=== PATIENT | male | born 1960 | race Caucasian/White ===

== ENCOUNTER 2019-09-16 20:20 | Emergency (ER) | payer MEDICAID, OTHER ==
[~2019-09-16] VITALS: Ht 175.3 cm; Wt 72.0 kg
[2019-09-16] MEDS ORDERED: THIAMINE 200 MG/2 ML VIAL. IV ONE (20:32)
--- NOTE | 2019-09-16 20:47 | PHYS DOC ---
Past History Past Medical History: Alcoholism, CVA, Hypertension Past Medical History Limited secondary to acute intoxication Past Surgical History: No Surgical History Past Surgical History Limited secondary to acute intoxication Smoking: Cigarettes Alcohol Use: Heavy Drug Use: None Social History Limited secondary to acute intoxication Adult General Chief Complaint Chief Complaint: ALCOHOL INTOXICATION HPI HPI 59-year-old male presents with report of altered mental status with history of chronic alcohol abuse. Patient thinks he had a "mini stroke" this morning secondary to dizziness. Patient reports he has been trying to "wean" himself off of alcohol. Patient does report drinking today. EMS reports patient noted to have blood sugar in the 60s. A one-time dose of oral glucose therefore provided. Patient does have history of diabetes. Patient denies known trauma. Denies pain. History of present illness limited secondary to patient's intoxication as well as being uncooperative with questioning and examination. Review of Systems Review of Systems Constitutional: Denies fever or chills GI: Reports abdominal pain Neurologic: Reports dizziness Review of systems limited secondary to being uncooperative with questioning and examination as well as acute intoxication Current Medications Current Medications Current Medications Medications (Trade) Dose Ordered Sig/Elder Start Time Stop Time Status Last Admin Dose Admin Lorazepam (Ativan Inj) 1 mg 1X ONCE 09/16/19 20:30 09/16/19 20:31 UNV Multivitamins/ Minerals 10 ml/ Folic Acid 1 mg/ Thiamine HCl 100 mg/Lactated Ringer's 1,011.3 ml @ 1,011.3 mls/hr 1X ONCE 09/16/19 20:30 09/16/19 21:29 UNV Thiamine HCl (Thiamine Vial) 200 mg STK-MED ONCE 09/16/19 20:32 09/16/19 20:32 DC Allergies Allergies Allergies Coded Allergies Type Severity Reaction Last Updated Verified No Known Drug Allergies 09/16/19 No Physical Exam Physical Exam Constitutional: Well developed, well nourished, intoxicated HENT: Normocephalic, atraumatic, oropharynx moist Eyes: PERRL, EOMI, conjunctiva injected bilaterally, no discharge, horizontal nystagmus noted Neck: Normal range of motion, no midline tenderness, supple Cardiovascular: Heart rate tachycardic regular rhythm Lungs & Thorax: Bilateral breath sounds clear to auscultation, no wheezing Abdomen: Soft, no tenderness, no guarding/rebound tenderness, mild distention noted Skin: Warm, dry, no erythema, no rash Extremities: No tenderness, ROM intact, no edema Neurologic: Alert, intoxicated, no focal deficits noted, patient moving all extremities, poor effort Psychologic: Judgment abnormal, mood agitated EKG EKG @ 2039 Sinus tachycardia at 105bpm, NO ST elevation, QRS 114ms, QT/QTc 352/469ms, LAFB, non specific t wave inversion aVL Radiology/Procedures Radiology/Procedures PROCEDURE: CT HEAD AND CERVICAL SPINE WO Exam: CT head and cervical spine without contrast INDICATION: Altered mental status TECHNIQUE: Sequential axial images through the head and cervical spine were obtained without the administration of IV contrast. Comparisons: None FINDINGS: Head: No focal parenchymal lesion or hemorrhage is identified. There is no midline shift or sulcal effacement. No acute vascular territory infarction is identified. Ribeiro-white distinction is preserved. The ventricular system is within normal limits without compression hydrocephalus. The basal cisterns are well maintained. The visualized portions of the paranasal sinuses and mastoid air cells are well-pneumatized. No acute fractures. Cervical spine: Vertebral body heights are well-maintained. Straightening of cervical spine which may be positional. Fracture to the cervical spine is not identified. Mild multilevel spondylotic change in cervical spine with degenerative disc disease greatest at C4-C5 and C5-C6. Visualized paraspinal soft tissues are unremarkable. IMPRESSION: 1. No acute intracranial abnormality. 2. Negative CT C-spine for acute traumatic injury. Exposure: One or more of the following in the visualized dose reduction techniques were utilized for this examination: 1. Automated exposure control 2. Adjustment of the MA and/or KV according to patient size Use of iterative of reconstructive technique Electronically signed by: Tierra Bowles MD (09/16/2019 9:31 PM) [id number] PROCEDURE: CHEST AP ONLY EXAM: CHEST AP ONLY INDICATION: Altered mental status. TECHNIQUE: Single view COMPARISON: None FINDINGS: The heart size is normal. The great vessels appear unremarkable. There is no hilar or mediastinal mass. The lungs are clear. There is no pleural effusion or pneumothorax. There are no significant osseous abnormalities. IMPRESSION: No active cardiopulmonary disease. Electronically signed by: Nona Albright MD (09/16/2019 9:31 PM) [id number] Course & Med Decision Making Course & Med Decision Making Pertinent Labs and Imaging studies reviewed. (See chart for details) Patient presents with reported altered mental status which appears secondary to intoxication. Patient with chronic history of alcoholism. No focal deficit noted however patient uncooperative with examination and questioning. Banana bag initiated. Ativan given for agitation. EKG stable. Labs obtained and posted to chart. LFTs elevated which is consistent for ETOH abuse. Lactic acid elevated. SIRS criteria met. No source of infection noted. Likely secondary to dehydration from ETOH abuse. IVF hydration given at 30ml/kg including 1 liter from banana bag (2.5L total). Hypomagnesemia addressed. CT head/cervical spine without acute process. Chest x-ray stable. Patient monitored in emergency department until clinically sober. Repeat lactic acid with interval improvement. Patient stable for discharge with outpatient follow-up with PCP/drug and alcohol rehabilitation. Drug and alcohol resources provided. Discussed findings and plan with patient, who acknowledges understanding and agreement. Dragon Disclaimer Dragon Disclaimer This electronic medical record was generated, in whole or in part, using a voice recognition dictation system. Departure Departure: Impression: Primary Impression: Alcohol abuse Additional Impressions: Lactic acidosis Hypomagnesemia Elevated LFTs Disposition: HOME, SELF-CARE Condition: STABLE Referrals: VENKATESH JACKSON APRN (PCP) Patient Instructions: Alcohol Intoxication, [id number], Alcohol and Drug Addiction, Finding Treatment, How Much is Too Much Alcohol, [id number], Hypomagnesemia, Lactic Acid, Lactate Problem Qualifiers FABY CHOWDHURY DO Sep 16, 2019 20:47
[2019-09-16 20:50] LABS: BASO # 0.1 x10^3/uL (0.0-0.2); BASO % 1 % (0-3); EOS % 0 % (0-3); HEMATOCRIT 51.9 % (39.0-53.0); HEMOGLOBIN 17.7 g/dL (13.0-17.5); LYMPH # 2.1 x10^3/uL (1.0-4.8); LYMPH % 17 % (24-48); MEAN CORPUSCULAR HEMOGLOBIN 33 pg (25-35); MEAN CORPUSCULAR HGB CONC 34 g/dL (31-37); MEAN CORPUSCULAR VOLUME 98 fL (79-100); MONO # 0.8 x10^3/uL (0.0-1.1); MONO % 7 % (0-9); NEUT # 9.5 x10^3uL (1.8-7.7); NEUT % 76 % (31-73); PLATELET COUNT 145 x10^3/uL (140-400); RED CELL DISTRIBUTION WIDTH 14.8 % (11.5-14.5); WHITE BLOOD COUNT 12.5 x10^3/uL (4.0-11.0)
[2019-09-16 20:59] LABS: CALCIUM 8.3 mg/dL (8.5-10.1); CREATININE 1.3 mg/dL (0.7-1.3); GFR 56.7
[2019-09-16] MEDS ORDERED: IV NORMAL SALINE 1,000ML 1,000 ML IV ONE (21:00)
[2019-09-16] MEDS ORDERED: MVI, ADULT NO.4 WITH VIT K 10 ML, THIAMINE INJ 100 MG in IV RINGERS SOLUTION,LACTATED 1... IV ONE ×3 (21:00)
[2019-09-16 21:12] LABS: ALBUMIN 3.6 g/dL (3.4-5.0); ALBUMIN/GLOBULIN RATIO 1.1 (1.0-1.7); TOTAL BILIRUBIN 1.5 mg/dL (0.2-1.0); TOTAL PROTEIN 6.9 g/dL (6.4-8.2)
[2019-09-16 21:13] LABS: MAGNESIUM 1.5 mg/dL (1.8-2.4)
--- NOTE | 2019-09-16 21:34 | RAD ---
EXAM: CHEST AP ONLY INDICATION: Altered mental status. TECHNIQUE: Single view COMPARISON: None FINDINGS: The heart size is normal. The great vessels appear unremarkable. There is no hilar or mediastinal mass. The lungs are clear. There is no pleural effusion or pneumothorax. There are no significant osseous abnormalities. IMPRESSION: No active cardiopulmonary disease. Electronically signed by: Nona Albright MD (09/16/2019 9:31 PM) [id number]
--- NOTE | 2019-09-16 21:34 | RAD ---
Exam: CT head and cervical spine without contrast INDICATION: Altered mental status TECHNIQUE: Sequential axial images through the head and cervical spine were obtained without the administration of IV contrast. Comparisons: None FINDINGS: Head: No focal parenchymal lesion or hemorrhage is identified. There is no midline shift or sulcal effacement. No acute vascular territory infarction is identified. Ribeiro-white distinction is preserved. The ventricular system is within normal limits without compression hydrocephalus. The basal cisterns are well maintained. The visualized portions of the paranasal sinuses and mastoid air cells are well-pneumatized. No acute fractures. Cervical spine: Vertebral body heights are well-maintained. Straightening of cervical spine which may be positional. Fracture to the cervical spine is not identified. Mild multilevel spondylotic change in cervical spine with degenerative disc disease greatest at C4-C5 and C5-C6. Visualized paraspinal soft tissues are unremarkable. IMPRESSION: 1. No acute intracranial abnormality. 2. Negative CT C-spine for acute traumatic injury. Exposure: One or more of the following in the visualized dose reduction techniques were utilized for this examination: 1. Automated exposure control 2. Adjustment of the MA and/or KV according to patient size Use of iterative of reconstructive technique Electronically signed by: Tierra Bowles MD (09/16/2019 9:31 PM) [id number]
[2019-09-16] MEDS ORDERED: IV NORMAL SALINE 500ML 500 ML IV ONE (21:45)
[2019-09-16] MEDS ORDERED: MAGNESIUM SULFATE 2GM 50 ML IV ONE (21:45)
[2019-09-16] MEDS ORDERED: FAMOTIDINE 20 MG/2 ML VIAL IVP ONE (22:15)
--- NOTE | 2019-09-16 23:07 | EKG ---
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
[2019-09-16 23:15] LABS: BARBITURATES NEG (NEG); BENZODIAZEPINES POS (NEG); CANNABINOIDS NEG (NEG); COCAINE NEG (NEG); METHADONE NEG (NEG); OPIATES NEG (NEG); PHENCYCLIDINE NEG (NEG)
[2019-09-16] MEDS ORDERED: NICOTINE 21MG PATCH. TD ONE (23:15)
[2019-09-16] MEDS ORDERED: KETOROLAC 15 MG/ML VIAL. IVP ONE (23:15)
[2019-09-16 23:16] LABS: AMPHETAMINE/METHAMPHETAMINE NEG (NEG)
[2019-09-16 23:22] LABS: BILIRUBIN,URINE SMALL (NEG); CLARITY,URINE HAZY; COLOR,URINE AMBER; GLUCOSE,URINE NEG (NEG)
[2019-09-16 23:23] LABS: BACTERIA,URINE FEW /HPF (0-FEW); GRANULAR CASTS,URINE FEW /HPF; HYALINE CASTS, URINE FEW /HPF; NITRITE,URINE NEG (NEG); SQUAMOUS EPITHELIAL CELL,UR OCC /LPF
[2019-09-17] MEDS ORDERED: DEXAMETHASONE SOD PHOS 4 MG/ML VIAL IVP ONE (00:30)
[2019-09-17 00:49] VITALS: BP 105/67
== END 2019-09-17 00:53 | disposition home or self-care (01) ==
LOC: ER 20:20
DX: F10.20 Alcohol dependence, uncomplicated (principal); E87.2 Acidosis; E83.42 Hypomagnesemia; R79.89 Other specified abnormal findings of blood chemistry; I10 Essential (primary) hypertension; Z86.73 Personal history of transient ischemic attack (TIA), and cerebral infarction without residual deficits; F17.210 Nicotine dependence, cigarettes, uncomplicated; Y90.8 Blood alcohol level of 240 mg/100 ml or more
CPT/HCPCS: 36415; 70450; 71045; 72125; 80053; 80307; 81001; 82140; 82553; 83605; 83690; 83735; 84484; 85025; 85610; 85730; 93005; 96361; 96365; 96366; 96368; 96375; 99285; G0480; J1885; J2060; J3475; J3490; J7120; J7030

== ENCOUNTER → 2020-12-17 | Outpatient (CLI) | payer MEDICAID | LOC: LAB 21:36 | DX: Z02.83 Encounter for blood-alcohol and blood-drug test (principal) | CPT/HCPCS: 36415 ==

== ENCOUNTER 2020-12-25 16:39 | Emergency (ER) | payer MEDICAID, OTHER ==
[~2020-12-25] VITALS: Ht 175.3 cm; Wt 72.0 kg
--- NOTE | 2020-12-25 17:06 | EKG ---
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
[2020-12-25 17:32] LABS: BASO # 0.1 x10^3/uL (0.0-0.2); BASO % 0 % (0-3); EOS % 0 % (0-3); HEMATOCRIT 46.7 % (39.0-53.0); HEMOGLOBIN 15.7 g/dL (13.0-17.5); LYMPH % 13 % (24-48); MEAN CORPUSCULAR HEMOGLOBIN 33 pg (25-35); MEAN CORPUSCULAR HGB CONC 34 g/dL (31-37); MEAN CORPUSCULAR VOLUME 97 fL (79-100); MONO # 1.3 x10^3/uL (0.0-1.1); MONO % 9 % (0-9); NEUT # 11.9 x10^3uL (1.8-7.7); NEUT % 78 % (31-73); PLATELET COUNT 330 x10^3/uL (140-400); RED CELL DISTRIBUTION WIDTH 14.1 % (11.5-14.5); WHITE BLOOD COUNT 15.3 x10^3/uL (4.0-11.0)
[2020-12-25 17:41] LABS: CALCIUM 9.2 mg/dL (8.5-10.1); CREATININE 1.3 mg/dL (0.7-1.3); GFR 56.5; POTASSIUM 3.7 mmol/L (3.5-5.1)
[2020-12-25 18:03] LABS: % ATYL 1 % (0-0); % BANDS 3 % (0-9); % LYMPHS 24 % (24-48); % MONOS 11 % (0-10); % SEGS 61 % (35-66)
[2020-12-25 18:05] LABS: PLT ESTIMATE ADEQUATE (ADEQUATE)
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
[2020-12-25 19:56] VITALS: BP 139/89
== END 2020-12-25 20:41 | disposition home or self-care (01) ==
LOC: ER 16:39
DX: F10.20 Alcohol dependence, uncomplicated (principal); F41.9 Anxiety disorder, unspecified; F32.9 Major depressive disorder, single episode, unspecified; I10 Essential (primary) hypertension; G89.29 Other chronic pain; F17.210 Nicotine dependence, cigarettes, uncomplicated; E78.5 Hyperlipidemia, unspecified; Y90.6 Blood alcohol level of 120-199 mg/100 ml
CPT/HCPCS: 36415; 80048; 85007; 85025; 93005; 99284; G0480

== ENCOUNTER 2021-01-16 12:13 | Observation (INO) | payer MEDICAID ==
[~2021-01-16] VITALS: Ht 180.3 cm; Wt 89.0 kg
[2021-01-16] MEDS ORDERED: IV NORMAL SALINE 1,000ML 1,000 ML IV ONE (12:30)
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
[2021-01-16 13:04] LABS: BILIRUBIN,URINE NEG (NEG); CLARITY,URINE CLEAR; COLOR,URINE YELLOW; GLUCOSE,URINE NEG (NEG); NITRITE,URINE NEG (NEG); UROBILINOGEN,URINE 0.2 mg/dL (0.2 mg/dL)
[2021-01-16 13:10] LABS: BACTERIA,URINE 0 /HPF (0-FEW); RBC,URINE RARE /HPF (0-2); WBC,URINE RARE /HPF (0-4)
[2021-01-16 13:11] LABS: SQUAMOUS EPITHELIAL CELL,UR OCC /LPF
[2021-01-16 13:19] LABS: BARBITURATES NEG (NEG); BENZODIAZEPINES NEG (NEG); CANNABINOIDS NEG (NEG); COCAINE NEG (NEG); METHADONE NEG (NEG); OPIATES NEG (NEG); PHENCYCLIDINE NEG (NEG)
[2021-01-16 13:21] LABS: AMPHETAMINE/METHAMPHETAMINE NEG (NEG)
[2021-01-16 13:27] LABS: BASO # 0.1 x10^3/uL (0.0-0.2); BASO % 2 % (0-3); EOS # 0.1 x10^3/uL (0.0-0.7); EOS % 2 % (0-3); HEMATOCRIT 41.7 % (39.0-53.0); HEMOGLOBIN 14.3 g/dL (13.0-17.5); LYMPH # 1.4 x10^3/uL (1.0-4.8); LYMPH % 17 % (24-48); MEAN CORPUSCULAR HEMOGLOBIN 34 pg (25-35); MEAN CORPUSCULAR HGB CONC 34 g/dL (31-37); MEAN CORPUSCULAR VOLUME 98 fL (79-100); MONO # 0.6 x10^3/uL (0.0-1.1); MONO % 7 % (0-9); NEUT # 6.3 x10^3uL (1.8-7.7); NEUT % 73 % (31-73); PLATELET COUNT 241 x10^3/uL (140-400); RED BLOOD COUNT 4.24 x10^6/uL (4.30-5.70); RED CELL DISTRIBUTION WIDTH 14.1 % (11.5-14.5); WHITE BLOOD COUNT 8.6 x10^3/uL (4.0-11.0)
[2021-01-16 13:41] LABS: CALCIUM 8.7 mg/dL (8.5-10.1); CREATININE 0.9 mg/dL (0.7-1.3); GFR 86.4; POTASSIUM 4.7 mmol/L (3.5-5.1)
[2021-01-16 13:47] LABS: ALBUMIN 3.7 g/dL (3.4-5.0); TOTAL BILIRUBIN 0.4 mg/dL (0.2-1.0); TOTAL PROTEIN 7.4 g/dL (6.4-8.2)
[2021-01-16 13:48] LABS: ACETAMIN < 2.0 mcg/mL (10-30); SALIC 5.3 mg/dL (2.8-20.0)
[2021-01-16] MEDS ORDERED: SODIUM BICARB ADULT 8.4% 50 MEQ/50 ML DISP.SYRIN. IV ONE (14:45)
[2021-01-16] MEDS ORDERED: ONDANSETRON PF 4 MG/2 ML VIAL. IVP PRN (15:00)
[2021-01-16 15:40] VITALS: BP 133/85
--- NOTE | 2021-01-16 16:43 | NUR ---
PT ADMITTED FROM ED TO ROOM 107 AT 1540. PT ALERT, ASYMPTOMATIC, VSS. CALLED DR YOUNG AND INFORMED HIM OF POISON CONTROL INFORMATION, NO ORDERS BESIDES A REGULAR DIET RECEIVED.
[2021-01-16] MEDS ORDERED: TADA20TA33 PO (16:54)
[2021-01-16] MEDS ORDERED: AMLO-186 PO (16:54)
[2021-01-16] MEDS ORDERED: PRAV40TA2 PO (16:54)
[2021-01-16] MEDS ORDERED: ASPI325T8 PO (16:54)
[2021-01-16] MEDS ORDERED: SILD50TA PO (16:54)
[2021-01-16] MEDS ORDERED: AMIT150T PO (16:54)
[2021-01-16] MEDS ORDERED: CARV6.2541 PO (16:54)
[2021-01-16] MEDS ORDERED: BUPR300T3 PO (16:54)
[2021-01-16] MEDS ORDERED: GABA-586 PO (16:54)
--- NOTE | 2021-01-16 18:23 | NUR ---
PT DENIES SUICIDAL ATTEMPT, STATES THAT HE HAS CHRONIC BACK PAIN AND HE IS NO LONGER ABLE TO GET HIS NORCO. HE STATES HE TOOK SIX GABAPENTIN AND 2 WELLBUTRIN IN AN ATTEMPT TO GET SOME SLEEP. HE STATES THAT HIS DAUGHTER CAME IN AND THOUGHT HE WAS ACTING FUNNY AND CALLED EMS
[2021-01-16 19:02] VITALS: BP 131/71
--- NOTE | 2021-01-16 19:11 | NUR ---
PAT TEAM HERE, CLEARED PT FROM SUICIDE WATCH. DR YOUNG NOTIFIED OF POISON CONTROL NEWEST RECOMMENDATIONS AND DENIES ANY NEW ORDERS AT THIS TIME
--- NOTE | 2021-01-16 19:26 | EKG ---
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 : 1960 Requested By: DUANE RUFFIN Order Number: [id number] Reading MD: Measurements Intervals [place] Rate: 80 P: 41 GA: 226 QRS: -41 QRSD: 122 T: 38 QT: 376 QTc: 437 Interpretive Statements SINUS RHYTHM PROLONGED [place] INTERVAL ABNORMAL LEFT AXIS DEVIATION ABNORMAL ECG RI6.02 No previous ECG available for comparison
--- NOTE | 2021-01-16 19:27 | EKG ---
[address] [address] Test Date: 2021-01-16 Test Time: 14:01:16 Pat Name: LOYDA MOORE Department: Room: Gender: M Informatics Spec: [facility] : 1960 Requested By: DUANE RUFFIN Order Number: [id number] Reading MD: Measurements Intervals [place] Rate: 74 P: 26 [place]: 230 QRS: -31 QRSD: 122 T: 14 QT: 396 QTc: 445 Interpretive Statements SINUS RHYTHM PROLONGED [place] INTERVAL ABNORMAL LEFT AXIS DEVIATION ABNORMAL ECG RI6.02 No previous ECG available for comparison
[2021-01-17 06:01] VITALS: BP 151/82
--- NOTE | 2021-01-17 09:01 | HP ---
ATTENDING PHYSICIAN: Dr. Regan. CHIEF COMPLAINT: Drug overdose. HISTORY OF PRESENT ILLNESS: The patient is a 60-year-old gentleman who took an unspecified amount of prescription medicine. He told the ER personnel 8 of Neurontin tablets and 2 Wellbutrin. He eventually admitted that he was despondent. He has 2 [address] appearances pending. His girlfriend left him. He is very despondent. He has had drug issues in the past. He said that he was very anxious and they stopped the Xanax dose because of abuse in the past. He was admitted then. He is hemodynamically stable. There is no arrhythmia. He was admitted overnight for observation. I do not think he took enough pills that warrant any danger. PAST MEDICAL HISTORY: Significant for chronic back pain, chronic alcoholism, anxiety, stroke, depression and hypertension. ALLERGIES: He has no recorded drug allergies. MEDICATIONS: Include Xanax, Wellbutrin and Neurontin as well as hydrocodone. FAMILY HISTORY: Father of COPD at age 67. Mom of heart disease at age 82. He is single. Recent girlfriend left him for obvious reasons. He has 2 children, 1 daughter lives with him. REVIEW OF SYSTEMS: Significant for the anxiety and multiple medical issues and drug abuse. All other systems were determined and turned to be negative. PHYSICAL EXAMINATION: GENERAL: When I saw him, this is an alert, middle-aged gentleman. INITIAL VITAL SIGNS: Showed a blood pressure 135/85, pulse is 71 and regular. He is afebrile. Oxygen saturation 98% on room air. HEENT: Head is without trauma. Pupils are reactive. Sclerae nonicteric. Oropharynx is clear. NECK: Supple, no bruits. LUNGS: Clear. CARDIOVASCULAR: Regular heart tones. No gallop. ABDOMEN: Soft. EXTREMITIES: Without edema. NEUROLOGIC: Focally intact. Speech is fluent. PERTINENT LABORATORY STUDIES: Hemoglobin is 14.3 g/dL with a white count of 8600. Electrolytes, BUN and creatinine, blood sugar all within normal range. Cardiac enzymes negative for coronary ischemia. The ECG showed a sinus rhythm without any acute changes. ASSESSMENT: 1. This 60-year-old gentleman was despondent. He had a suicide gesture. He took a minimal amount of antidepressant therapy. 2. Chronic pain syndrome. 3. History of substance abuse. 4. Underlying depression with anxiety. 5. Essential hypertension. 6. Chronic low back pain. PLAN: 1. Observation status. 2. Diet as tolerated. 3. Monitoring of rhythm. 4. PAT team to assess and advise discharge plan in the morning. LIDYA/JUDITH/DANYELLE DR: LIDYA/peter TID: [id number] CC: MERON ABDI MD
--- NOTE | 2021-01-17 09:18 | DS ---
DATE OF DISCHARGE: 01/17/2021 ATTENDING PHYSICIAN: Dr. Regan. FINAL DISCHARGE DIAGNOSES: 1. Suicide gesture. 2. Minimal drug overdose. 3. Depression. 4. Anxiety. 5. Hypertension. 6. Chronic low back pain. 7. History of substance abuse. 8. History of alcoholism. HISTORY AND PHYSICAL: This 60-year-old gentleman with multiple medical and social issues as a gesture, took a small amount of Wellbutrin and Neurontin. At first, he denied suicidal ideation, but then he admitted to being despondent and his was spiraling out of control. Girlfriend recently left him too. He was admitted then for observation based on the minimal amount of drugs that he is on. PHYSICAL EXAMINATION: Please see the dictated note. PERTINENT LABORATORY AND X-RAY STUDIES: Normal CBC, chemistry panel, liver panel, troponin. ECG showed a sinus rhythm without any prolonged QT elevation. COURSE IN THE HOSPITAL: The patient was admitted. We held his scheduled 2 medications. He did fairly well. Diet was advanced. He was very agitated. At this time, a PAT team saw him and advised a safe discharge plan. He does not exhibit any signs of self-harm. He has been very contrite and remorseful. Therefore, I reluctantly gave him a script for Xanax for 10 days 1 mg t.i.d. No narcotics. He will need to follow up with his primary care physician. The patient was then discharged from our hospital in stable condition. He was seen by the PAT team. They have devised a plan for outpatient care. SRIRAM DR: Shyann TID: [id number] CC: MERON ABDI MD
--- NOTE | 2021-01-17 09:59 | NUR ---
Discharge Note Patient read discharge instructions and handed prescription script. Patient questions answered in full. Patient given instructions over alcohol withdraw and is to call and follow up with the PAT team consultation/plan. No other acute concerns. 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
== END 2021-01-17 09:40 | disposition home or self-care (01) ==
LOC: ER 12:13 → 1 SOUTH 15:00 → INTOOBSV 15:00 → ER 15:26
PROVIDERS: ADMIT Hospitalist; ATTEND Hospitalist
DX: T42.6X2A Poisoning by other antiepileptic and sedative-hypnotic drugs, intentional self-harm, initial encounter (principal); I10 Essential (primary) hypertension; G89.4 Chronic pain syndrome; F41.8 Other specified anxiety disorders; M54.5 Low back pain; F10.129 Alcohol abuse with intoxication, unspecified; F17.210 Nicotine dependence, cigarettes, uncomplicated; Z86.73 Personal history of transient ischemic attack (TIA), and cerebral infarction without residual deficits; Z79.899 Other long term (current) drug therapy
CPT/HCPCS: 36415; 80053; 80307; 80329; 81001; 83735; 84484; 85025; 93005; 96361; 96374; 96375; 99284; G0378; J2060; J7030; G0379; 99285-25; G0480

== ENCOUNTER 2021-05-10 17:14 | Inpatient (IN) | payer MEDICAID ==
[~2021-05-10] VITALS: Ht 180.3 cm; Wt 99.3 kg
[~2021-05-10 17:14] MED LIST: AMIT150T PO; AMLO-186 PO; ASPI325T8 PO; BUPR300T3 PO; CARV6.2541 PO; GABA-586 PO; PRAV40TA2 PO; SILD50TA PO; TADA20TA33 PO
[2021-05-10] MEDS ORDERED: ONDANSETRON PF 4 MG/2 ML VIAL. IVP ONE (17:30)
[2021-05-10] MEDS ORDERED: ONDANSETRON PF 4 MG/2 ML VIAL. ONE (17:30)
[2021-05-10] MEDS ORDERED: MVI, ADULT NO.4 WITH VIT K 10 ML, FOLIC ACID INJ 1 MG, THIAMINE INJ 100 MG in IV RINGER... IV ONE (17:30)
[2021-05-10 17:55] LABS: BASO # 0.1 x10^3/uL (0.0-0.2); BASO % 1 % (0-3); EOS % 0 % (0-3); HEMATOCRIT 46.3 % (39.0-53.0); HEMOGLOBIN 15.5 g/dL (13.0-17.5); LYMPH # 1.1 x10^3/uL (1.0-4.8); LYMPH % 4 % (24-48); MEAN CORPUSCULAR HEMOGLOBIN 34 pg (25-35); MEAN CORPUSCULAR HGB CONC 33 g/dL (31-37); MEAN CORPUSCULAR VOLUME 101 fL (79-100); MONO # 1.9 x10^3/uL (0.0-1.1); MONO % 7 % (0-9); NEUT # 22.6 x10^3uL (1.8-7.7); NEUT % 88 % (31-73); PLATELET COUNT 160 x10^3/uL (140-400); RED BLOOD COUNT 4.61 x10^6/uL (4.30-5.70); RED CELL DISTRIBUTION WIDTH 14.5 % (11.5-14.5); WHITE BLOOD COUNT 25.7 x10^3/uL (4.0-11.0)
--- NOTE | 2021-05-10 17:59 | EKG ---
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
[2021-05-10 18:32] LABS: CALCIUM 8.4 mg/dL (8.5-10.1); CREATININE 1.4 mg/dL (0.7-1.3); GFR 51.7; POTASSIUM 3.8 mmol/L (3.5-5.1)
[2021-05-10 18:38] LABS: ALBUMIN 3.3 g/dL (3.4-5.0); ALBUMIN/GLOBULIN RATIO 0.8 (1.0-1.7); TOTAL BILIRUBIN 1.4 mg/dL (0.2-1.0); TOTAL PROTEIN 7.2 g/dL (6.4-8.2)
--- NOTE | 2021-05-10 18:55 | RAD ---
EXAM: CHEST ONE VIEW. HISTORY: Alcohol withdrawal. COMPARISON: 09/16/2019. FINDINGS: A frontal view of the chest is obtained. There are no confluent infiltrates. There is no pneumothorax or pleural effusion. The heart is not en larged. Calcified lymph nodes likely reflect old granulomatous disease. IMPRESSION: 1. No confluent infiltrates. Electronically signed by: Amaury Mcneil MD (05/10/2021 6:52 PM) [facility]
[2021-05-10 18:56] LABS: % BANDS 9 % (0-9); % LYMPHS 4 % (24-48); % MONOS 6 % (0-10); % SEGS 81 % (35-66); PLT ESTIMATE ADEQUATE (ADEQUATE)
[2021-05-10] MEDS ORDERED: levoFLOXacin PER PHARMACY 1 EACH. MC PRN (19:15)
--- NOTE | 2021-05-10 19:25 | PHYS DOC ---
Past History Past Medical History: Alcoholism, Anxiety, CVA, Depression, Hypertension Additional Past Medical Histor: chronic back pain (FABY GODINEZ APRN) Past Surgical History: Cholecystectomy (FABY GODINEZ APRN) Smoking: Cigarettes Alcohol Use: Heavy Drug Use: None (FABY GODINEZ APRN) Adult General Chief Complaint Chief Complaint: WITHDRAWAL HPI HPI Patient is a 61-year-old male who presents to the emergency department with concerning alcohol withdrawal. Patient reports being on a 10-day drinking binge without eating food, states he has drank nothing that vodka every day for the past 10 days, reports his last drink of alcohol was at 3 AM this morning. Patient states since then he has loss of bowel continence on himself, feels sh aky as if he might have a seizure, reports a seizure history with alcohol withdraw symptoms. Patient is requesting help to stop drinking alcohol, requests alcohol detox. Patient denies chest pains, shortness of breath, fever or chills. Patient states he does feel shaky and nauseated which is typical for his alcohol withdrawal symptoms. Patient denies other physical complaints or physical concerns. Patient reports being a cigarette smoker, does drink alcohol heavily, denies illicit drug use. (FABY GODINEZ APRN) Review of Systems Review of Systems 14 body systems of review of systems have been reviewed. See HPI for pertinent positives and negative responses, otherwise all other systems are negative, nonpertinent or noncontributory. Constitutional: Negative except as outlined in HPI above. Skin: Negative except as outlined in HPI above. Eyes: Negative except as outlined in HPI above. HENT: Negative except as outlined in HPI above. Respiratory: Negative except as outlined in HPI above. Cardiovascular: Negative except as outlined in HPI above. GI: Negative except as outlined in HPI above. : Negative except as outlined in HPI above. Musculoskeletal: Negative except as outlined in HPI above. Integument: Negative except as outlined in HPI above. Neurologic: Negative except as outlined in HPI above. Endocrine: Negative except as outlined in HPI above. Lymphatic: Negative except as outlined in HPI above. Psychiatric: Negative except as outlined in HPI above. (FABY GODINEZ APRN) Current Medications Current Medications Current Medications Medications (Trade) Dose Ordered Sig/Elder Start Time Stop Time Status Last Admin Dose Admin Lactated Ringer's 1,000 ml @ 1,000 mls/hr 1X ONCE 05/10/21 19:30 05/10/21 20:29 Levofloxacin/ Dextrose 100 ml @ 100 mls/hr Q24H 05/10/21 20:00 Levofloxacin/ Dextrose (Levaquin Per Pharmacy) 1 each PRN DAILY PRN 05/10/21 19:15 Lorazepam (Ativan Inj) 1 mg 1X ONCE 05/10/21 17:30 05/10/21 17:32 DC 05/10/21 17:38 1 MG Multivitamins/ Minerals 10 ml/ Folic Acid 1 mg/ Thiamine HCl 100 mg/Lactated Ringer's 1,011.3 ml @ 1,011.3 mls/hr 1X ONCE 05/10/21 17:30 05/10/21 18:29 DC 05/10/21 18:08 1,011.3 MLS/HR Ondansetron HCl (Zofran) 4 mg STK-MED ONCE 05/10/21 17:30 05/10/21 17:30 DC (FABY GODINEZ APRN) Allergies Allergies Allergies Coded Allergies Type Severity Reaction Last Updated Verified No Known Drug Allergies 12/25/20 No (FABY GODINEZ APRN) Physical Exam Physical Exam Constitutional: Well developed, well nourished, no acute distress, non-toxic appearance. Disheveled in appearance. HENT: Normocephalic, atraumatic. Eyes: Conjunctiva normal, no discharge. Neck: Normal range of motion, no stridor. Cardiovascular: No cyanosis appreciated, distal cap refill less than 2 seconds. Lungs & Thorax: Patient is in no respiratory distress, no audible adventitious lung sounds appreciated. Abdomen: Nontender, no abnormalities noted. Skin: Warm, dry, no erythema, no rash. Back: No tenderness, no deformities. Extremities: No tenderness, no cyanosis, no clubbing, ROM intact, no edema. Neurologic: Alert and oriented X 3, normal motor function, normal sensory function, no focal deficits noted. Psychologic: Affect normal, judgement normal, mood normal. (FABY GODINEZ APRN) Current Patient Data Vital Signs Vital Signs Date Time Temp Pulse Resp B/P (MAP) Pulse Ox O2 Delivery O2 Flow Rate FiO2 05/10/21 18:25 108 21 128/106 (113) 97 Room Air 05/10/21 17:14 97.7 Lab Results Laboratory Tests Test 05/10/21 17:30 05/10/21 18:14 05/10/21 18:24 White Blood Count 25.7 x10^3/uL (4.0-11.0) H Red Blood Count 4.61 x10^6/uL (4.30-5.70) Hemoglobin 15.5 g/dL (13.0-17.5) Hematocrit 46.3 % (39.0-53.0) Mean Corpuscular Volume 101 fL (79-100) H Mean Corpuscular Hemoglobin 34 pg (25-35) Mean Corpuscular Hemoglobin Concent 33 g/dL (31-37) Red Cell Distribution Width 14.5 % (11.5-14.5) Platelet Count 160 x10^3/uL (140-400) Neutrophils (%) (Auto) 88 % (31-73) H Lymphocytes (%) (Auto) 4 % (24-48) L Monocytes (%) (Auto) 7 % (0-9) Eosinophils (%) (Auto) 0 % (0-3) Basophils (%) (Auto) 1 % (0-3) Neutrophils # (Auto) 22.6 x10^3uL (1.8-7.7) H Lymphocytes # (Auto) 1.1 x10^3/uL (1.0-4.8) Monocytes # (Auto) 1.9 x10^3/uL (0.0-1.1) H Eosinophils # (Auto) 0.0 x10^3/uL (0.0-0.7) Basophils # (Auto) 0.1 x10^3/uL (0.0-0.2) Segmented Neutrophils % 81 % (35-66) H Band Neutrophils % 9 % (0-9) Lymphocytes % 4 % (24-48) L Monocytes % 6 % (0-10) Platelet Estimate Adequate (ADEQUATE) Creatine Kinase 251 U/L (39-308) Creatine Kinase MB (Mass) 3.6 ng/mL (0.0-3.6) Creatine Kinase MB Relative Index 1.4 % (0-4) Ethyl Alcohol Level 132 mg/dL (0-10) H Acetone Level Neg (NEG) POC Venous pH 7.46 (7.32-7.42) H POC Venous pCO2 28 mmHg (41-51) L POC Venous pO2 60 mmHg (20-40) H Venous Blood HCO3 20 mmol/L (24-28) L POC Venous O2 Saturation (Levon) 92 % POC FiO2 21 Sodium Level 138 mmol/L (136-145) Potassium Level 3.8 mmol/L (3.5-5.1) Chloride Level 94 mmol/L (98-107) L Carbon Dioxide Level 16 mmol/L (21-32) L Anion Gap 28 (6-14) H Blood Urea Nitrogen 19 mg/dL (8-26) Creatinine 1.4 mg/dL (0.7-1.3) H Estimated GFR (Cockcroft-Gault) 51.7 BUN/Creatinine Ratio 14 (6-20) Glucose Level 130 mg/dL (70-99) H Calcium Level 8.4 mg/dL (8.5-10.1) L Total Bilirubin 1.4 mg/dL (0.2-1.0) H Aspartate Amino Transferase (AST) 129 U/L (15-37) H Alanine Aminotransferase (ALT) 78 U/L (16-63) H Alkaline Phosphatase 145 U/L (46-116) H Total Protein 7.2 g/dL (6.4-8.2) Albumin 3.3 g/dL (3.4-5.0) L Albumin/Globulin Ratio 0.8 (1.0-1.7) L Lipase 27 U/L (73-393) L (FABY GODINEZ APRN) EKG EKG EKG performed at 1744 by ED nursing staff shows a sinus tachycardia with left axis deviation heart rate 113 bpm, [place] interval 0.170, QTc interval 0.467, no acute STEMI, no ACS, no acute ischemia appreciated, EKG interpreted by ED attending physician Dr. Wyman. (FABY GODINEZ APRN) Radiology/Procedures Radiology/Procedures PATIENT: LOYDA MOORE: [id number] : 1960 LOCATION: ER AGE: 61 SEX: M EXAM STATUS: REG ER ORD. PHYSICIAN: FABY GODINEZ APRN REASON: EtOH withdrawal PROCEDURE: CHEST AP ONLY EXAM: CHEST ONE VIEW. HISTORY: Alcohol withdrawal. COMPARISON: 09/16/2019. FINDINGS: A frontal view of the chest is obtained. There are no confluent infiltrates. There is no pneumothorax or pleural effusion. The heart is not enlarged. Calcified lymph nodes likely reflect old granulomatous disease. IMPRESSION: 1. No confluent infiltrates. Electronically signed by: Amaury Mcneil MD (05/10/2021 6:52 PM) [facility] DICTATED AND SIGNED BY: ROLAND MCNEIL MD DATE: 05/10/211850 CC: FABY GODINEZ APRN; MERON ABDI MD ~MTH0 0 (FABY GODINEZ APRN) Heart Score C/O Chest Pain: No Risk Factors: Risk Factors: DM, Current or recent (<one month) smoker, HTN, HLP, family history of CAD, obesity. Risk Scores: Risk Factors: DM, Current or recent (<one month) smoker, HTN, HLP, family history of CAD, obesity. (FABY GODINEZ APRN) Course & Med Decision Making Course & Med Decision Making Pertinent Labs and Imaging studies reviewed. (See chart for details) 61-year-old male, vital signs reviewed, presents emergency department concerning alcohol withdrawal. Will order banana bag, Ativan, serum alcohol, CBC, CMP, chest x-ray, urinalysis assay, EKG, serum lactate, acetone level, venous blood gas. Will consult PAT velvet steamer for discussion for alcohol treatment detox with patient. Discussed patient case with PAT velvet steamer been will come interview patient. Patient's labs suggestive of alcoholic ketoacidosis, ED attending physician called and discussed patient case and ED work-up with inpatient management physician Dr. Martinez who agrees patient case warrants admission to the ICU at [facility] for colic ketoacidosis. Patient awaiting bed number at this time. Patient started on Levaquin per pharmacy dosing. Discussed findings with patient and recommended admission, patient is amenable to admission to the hospital. (FABY GODINEZ APRN) Course & Med Decision Making Did not see or evaluate patient. Agree with HELP DESK MANAGER's work-up and disposition per note. (JENNIFER BAKER MD) Dragon Disclaimer Dragon Disclaimer This electronic medical record was generated, in whole or in part, using a voice recognition dictation system. (FABY GODINEZ APRN) Departure Departure: Impression: Primary Impression: Alcoholic ketoacidosis Disposition: ADMITTED INPATIENT Admitting Physician: Jayson Martinez (Admit to ICU to Dr. Martinez) (FABY GODINEZ APRN) Condition: GUARDED Referrals: MERON ABDI MD (PCP) FABY GODINEZ APRN May 10, 2021 19:25 JENNIFER BAKER MD May 10, 2021 21:51
[2021-05-10] MEDS ORDERED: IV RINGERS SOLUTION,LACTATED 1,000 ML IV ONE (19:30)
[2021-05-10] MEDS ORDERED: diphenhydrAMINE 50 MG/ML VIAL IVP PRN (19:30)
[2021-05-10] MEDS ORDERED: HALOPERIDOL LACT 5 MG/ML VIAL. IM PRN (19:30)
[2021-05-10] MEDS ORDERED: cloNIDine HCL 0.1 MG TABLET PO PRN (19:30)
[2021-05-10] MEDS: IV RINGERS SOLUTION,LACTATED 1,000 ML IV SCH (20:49)
[2021-05-10 21:13] VITALS: BP 109/78
--- NOTE | 2021-05-10 21:18 | NUR ---
Arrives to ICU Rm 2 via gurney from ED in stable condition; VSS; A&Ox4; labs drawn and IV abx initiated as ordered; prn ativan given for c/o restlessness and agitation, effective per pt statement; quality assurance monitor body shows sinus tach at 108 bpm; room/unit orientation given, verbalized understanding; resting at present with no voiced needs or concerns at this time, call stewart in reach.
[2021-05-10 22:00] VITALS: BP 104/64
[2021-05-10 23:00] VITALS: BP 103/63
[2021-05-10 23:59] VITALS: BP 93/65
[2021-05-11] VITALS (19 sets, daily range): BP systolic 84–138; BP diastolic 54–92
[2021-05-11] MEDS: IV RINGERS SOLUTION,LACTATED 1,000 ML IV SCH ×2 (06:17→19:33)
[2021-05-11 06:24] LABS: BASO % 0 % (0-3); EOS % 0 % (0-3); HEMATOCRIT 35.8 % (39.0-53.0); HEMOGLOBIN 12.2 g/dL (13.0-17.5); LYMPH # 1.2 x10^3/uL (1.0-4.8); LYMPH % 17 % (24-48); MEAN CORPUSCULAR HEMOGLOBIN 34 pg (25-35); MEAN CORPUSCULAR HGB CONC 34 g/dL (31-37); MEAN CORPUSCULAR VOLUME 100 fL (79-100); MONO # 0.2 x10^3/uL (0.0-1.1); MONO % 2 % (0-9); NEUT # 6.1 x10^3uL (1.8-7.7); NEUT % 81 % (31-73); PLATELET COUNT 82 x10^3/uL (140-400); RED BLOOD COUNT 3.57 x10^6/uL (4.30-5.70); RED CELL DISTRIBUTION WIDTH 14.8 % (11.5-14.5); WHITE BLOOD COUNT 7.5 x10^3/uL (4.0-11.0)
[2021-05-11 06:34] LABS: ALBUMIN 2.2 g/dL (3.4-5.0); ALBUMIN/GLOBULIN RATIO 0.7 (1.0-1.7); CALCIUM 7.4 mg/dL (8.5-10.1); CREATININE 1.2 mg/dL (0.7-1.3); GFR 61.8; POTASSIUM 3.3 mmol/L (3.5-5.1); TOTAL PROTEIN 5.2 g/dL (6.4-8.2)
--- NOTE | 2021-05-11 08:00 | NUR ---
pt reports he is unable to urinate at this time. pt states he feels like he has to go but nothing is coming out when attempting to use urinal.
[2021-05-11] MEDS ORDERED: ONDANSETRON ODT 4 MG TAB.RAPDIS PO PRN (09:00)
--- NOTE | 2021-05-11 09:50 | NUR ---
pt was bladder scanned with over 800 ml of urine in bladder. discussed with pt about cortes placement until pt is able to urinate and pt agrees. dr. ryan ordered for cortes placed.
[2021-05-11] MEDS ORDERED: MVI, ADULT NO.4 WITH VIT K 10 ML, FOLIC ACID INJ 1 MG, THIAMINE INJ 100 MG in IV NORMAL... IV ONE (10:30)
--- NOTE | 2021-05-11 10:30 | NUR ---
Pt pulled IV out when moving from toilet back to bed.
--- NOTE | 2021-05-11 12:33 | NUR ---
14 F cortes was inserted with 750 ml of urine return. pt tolerated procedure well.
[2021-05-11 13:36] LABS: BACTERIA,URINE MANY /HPF (0-FEW); BILIRUBIN,URINE SMALL (NEG); CLARITY,URINE CLOUDY; COLOR,URINE AMBER; GLUCOSE,URINE NEG (NEG); NITRITE,URINE POS (NEG)
--- NOTE | 2021-05-11 13:53 | HP ---
DATE OF SERVICE: 05/11/2021 ADMIT DATE: 05/10/2021 HISTORY OF PRESENT ILLNESS: The patient is a 61-year-old male patient, who presented to the Emergency Room with concern for alcohol withdrawal. The patient reports being on a 10-day drinking binge without eating food, states he has drank nothing, but vodka every day for the past 10 days. He reports his last drink of alcohol was about 3:00 a.m. the morning of admission. He states that since then he has loss of bowel continence, himself feels shaky as if he might have a seizure, reports a seizure history, alcohol withdrawal symptoms. The patient is requesting help to stop drinking alcohol, requests alcohol detoxification. He denied any chest pain, shortness of breath, fever, or chills. The patient states that he feels shaky and nauseated, but still carries alcohol withdrawal symptoms. Denies any other physical complaint or concern. He also smokes cigarettes, but denied any illicit drug use. He was apparently extensively investigated in the Emergency Room. His lab work showed a marked leukocytosis. The white cell count 25,700, his blood gases showed a pH of 7.46, pCO2 of 28, pO2 of 60, bicarbonate 20, and oxygen saturation 92%. He was found also to have markedly deranged liver enzymes and marked lactic acidosis. His toxic screen showed blood alcohol level of 132 mg. The acetone level was negative. His chest x-ray showed there is no confluent infiltrate. There is no pneumothorax or pleural effusion. The heart is not enlarged, calcified lymph nodes likely reflect, although there are no metastases. He was admitted with alcoholic ketoacidosis, was started on alcohol withdrawal protocol, and received a banana bag together with IV levofloxacin. PAST MEDICAL HISTORY: Significant for hypertension, depression, and anxiety, cerebrovascular accident, alcoholism, and nicotine dependence and also chronic low back pain. PAST SURGICAL HISTORY: Significant for cholecystectomy. ALLERGIES: He has no known drug allergies. FAMILY HISTORY: Father of COPD at the age of 67. Mother of heart disease at 82. SOCIAL HISTORY: He is single. His most recent girlfriend left him for obvious reason. He has 2 children, 1 daughter lives with him. He continued to smoke cigarettes and drink alcohol heavily. PHYSICAL EXAMINATION: GENERAL: On arrival to the Emergency Room, he looked well and was clearly in no apparent respiratory distress. No pallor, jaundice, cyanosis, or thyromegaly. No jugular venous distention. No lower limb edema. VITAL SIGNS: His heart rate was 101, blood pressure was 93/65, his temperature was 97.7, respiratory rate was 18, and oxygen saturation was 95%. HEAD, EYES, EARS, NOSE, AND THROAT: Normocephalic, atraumatic. NECK: Supple. HEART: Normal first and second heart sounds, no gallop, rub or murmur. CHEST: Clear to auscultation, no crepitation or rhonchi. ABDOMEN: Distended, soft, mild tenderness in epigastric area. No guarding or rigidity. No organomegaly. All hernial orifices intact. Bowel sounds normal. NEUROLOGIC: He was awake, alert, responding appropriately. All his cranial nerves are intact. He moves extremities without difficulty. His affect, judgment and mood were normal. LABORATORY DATA: Showed a white cell count of 25,700, hemoglobin 15.5, hematocrit 46, MCV 101 and platelet count of 160,000, with a manual differential showed 88% polymorphs, 4% lymphocytes, 7% monocytes. His chemistry showed a serum sodium 138, potassium 3.8, chloride 94, bicarbonate 16, anion gap of 28, BUN of 19, creatinine 1.4. Estimated GFR was 52 mL per minute. His glucose 130, calcium was 8.4. Total bilirubin, AST, ALT, alkaline phosphatase are all elevated. Total protein was 7.2, albumin 3.3, lipase was 27. His toxic screen showed ethyl blood alcohol level of 132 mg/dL and acetone was negative. ASSESSMENT: The patient was admitted with alcoholic ketoacidosis. He has also lactic acidosis as well as marked leukocytosis. Other medical problems include hypertension; however, the patient if anything is hypertensive. He has anxiety and depression, history of cerebrovascular accident and chronic back pain. PLAN: To continue with IV fluid. Continue with alcohol withdrawal protocol and obviously, he has had his blood and urine sent for culture and sensitivity. The result of which is still pending at the time of this dictation. STELLA DR: Brandi TID: [id number]
[2021-05-11] MEDS ORDERED: POTASSIUM CHLORIDE 20 MEQ TABLET.ER. PO ONE (19:30)
--- NOTE | 2021-05-11 22:26 | PN ---
SUBJECTIVE: The patient was admitted last night with alcoholic ketoacidosis, lactic acidosis, dehydration and was treated with IV fluid, did have also IV levofloxacin. His lactic acidosis came down nicely from 6.3-2.1. PHYSICAL EXAMINATION: GENERAL: When I saw him this afternoon, he looked well and was clearly in no apparent respiratory distress. No pallor, jaundice, cyanosis or thyromegaly. No jugular venous distention. No lower limb edema. VITAL SIGNS: His heart rate was 98 and his most recent blood pressure was 96/69, temperature was 98.6, respiratory rate was 18 and oxygen saturation was 96% on 2 liters of oxygen. HEAD, EYES, EARS, NOSE, AND THROAT: Normocephalic, atraumatic. NECK: Supple. HEART: Normal first and second heart sounds. No gallop, rub or murmur. CHEST: Shows central trachea, equal bilateral expansion, air entry, vesicular breath sounds. No crepitation or rhonchi. ABDOMEN: Slightly distended, soft with tenderness mostly in the epigastric area. No guarding or rigidity. No organomegaly. All hernial orifice intact. Bowel sounds normal. NEUROLOGIC: He is awake, alert, responding appropriately. All cranial nerves intact. He moves extremities without difficulty. He has an indwelling Conroy catheter as he has urine retention and on placement to the Conroy catheter, we drained about more than 700 mL of urine. ASSESSMENT: Alcoholic ketoacidosis, alcoholism and alcohol withdrawal syndromes. The patient has other medical problems include; A. History of cerebrovascular accident. B. Anxiety and depression. C. Hypertension. D. Chronic back pain. PLAN: To continue with IV fluid. Continue with alcohol withdrawal protocol. We will continue with IV antibiotic and await the result of the urine and blood culture and sensitivity. NANNETTE FARAH: Brandi TID: [id number]
[2021-05-12] VITALS (10 sets, daily range): BP systolic 107–133; BP diastolic 62–85
[2021-05-12] MEDS: IV RINGERS SOLUTION,LACTATED 1,000 ML IV SCH (05:10)
[2021-05-12 07:07] LABS: HEMATOCRIT 33.2 % (39.0-53.0); HEMOGLOBIN 11.2 g/dL (13.0-17.5); RED BLOOD COUNT 3.27 x10^6/uL (4.30-5.70); RED CELL DISTRIBUTION WIDTH 14.6 % (11.5-14.5); WHITE BLOOD COUNT 8.9 x10^3/uL (4.0-11.0)
[2021-05-12 07:23] LABS: ALBUMIN 2.1 g/dL (3.4-5.0); ALBUMIN/GLOBULIN RATIO 0.7 (1.0-1.7); CALCIUM 7.3 mg/dL (8.5-10.1); CREATININE 1.2 mg/dL (0.7-1.3); GFR 61.8; POTASSIUM 3.2 mmol/L (3.5-5.1); TOTAL BILIRUBIN 0.6 mg/dL (0.2-1.0); TOTAL PROTEIN 5.3 g/dL (6.4-8.2)
[2021-05-12] MEDS ORDERED: ONDANSETRON PF 4 MG/2 ML VIAL. IVP PRN (08:30)
[2021-05-12] MEDS ORDERED: LACTOBACILLUS RHAMNOSUS GG 1 CAPSULE. PO SCH (09:00)
[2021-05-12] MEDS ORDERED: LORA-254 PO (10:59)
[2021-05-12] MEDS ORDERED: POTASSIUM CHLORIDE 20 MEQ TABLET.ER. PO ONE (11:00)
--- NOTE | 2021-05-12 11:38 | DS ---
DATE OF DISCHARGE: 05/12/2021 HOSPITAL COURSE: The patient is a 61-year-old male patient who was admitted on 05/10/2021 through the Emergency Room with a complaint of alcohol withdrawal. He was binge drinking for almost 10 days, has not eaten any food, states he drank nothing except vodka every day for the last 10 days prior to admission. Reports his last drink of alcohol was around 3 a.m. on the day of admission. He stated that he is incontinent of bowel, was feeling shaky as if he might have seizure, reports seizure history with alcohol withdrawal symptoms. He was admitted and started on alcohol withdrawal protocol, started on banana bag and he initially requested help to stop drinking alcohol and also alcohol detoxification. In fact, he was seen by the psych assessment team, but he decided this morning that he is doing fine and he would like to go home. PHYSICAL EXAMINATION: GENERAL: When I saw him this morning, he was resting, slightly propped up in bed, in no apparent respiratory distress. No pallor, jaundice, cyanosis or thyromegaly. No jugular venous distention. No limb edema. VITAL SIGNS: His heart rate was 86, blood pressure was 107/78, temperature was 98.2, respiratory rate was 14 and oxygen saturation was 92% on room air. HEAD, EYES, EARS, NOSE, AND THROAT: Showed normocephalic, atraumatic. NECK: Supple. HEART: Showed normal first and second heart sounds, no gallop or murmur. CHEST: Clear to auscultation, no crepitation or rhonchi. ABDOMEN: Distended, soft, nontender. NEUROLOGIC: He was grossly intact. LABORATORY DATA: His lab work this morning showed a white cell count of 8900, hemoglobin was 11, hematocrit 33, MCV 102 and platelet count of 63,000. His chemistry showed a serum sodium 138, potassium 3.2, chloride 101, bicarbonate 29, anion gap of 8, BUN 17, creatinine 1.2. Estimated GFR was 61 mL per minute. His glucose was 85, calcium was 7.3. Total bilirubin is normal. AST, ALT, alkaline phosphatase slightly elevated, but the ammonia was normal. His total protein was 5.3, albumin was 2.1 and serum lipase is only 26. DISCHARGE MEDICATIONS: The patient was discharged home to continue on lorazepam 1 mg 3 times a day for 7 days, amlodipine besylate 5 mg once a day, aspirin 325 mg once a day, carvedilol 6.25 mg twice a day. FINAL DISCHARGE DIAGNOSES: 1. Alcoholic ketoacidosis, alcoholism and alcohol withdrawal syndrome. 2. History of cerebrovascular accident. 3. Anxiety and depression. 4. Hypertension. 5. Chronic back pain. 6. Hypokalemia, for which he was given replacement. I am not really convinced that he has any infection. His chest x-ray was normal. His blood culture is normal. His urinalysis was unremarkable. I think the derangement of liver enzymes is because of levofloxacin and I discontinued that. RACHANA/BANDAR DR: Bradni TID: [id number]
--- NOTE | 2021-05-12 11:55 | NUR ---
Discharge Note: [facility] Discharge instructions and discharge home medications reviewed with Patient and a copy given. All questions have been answered and understanding verbalized. The following instructions and handouts were given: Ativan Patient discharged to home.
== END 2021-05-12 11:50 | disposition home or self-care (01) | DRG 897 ==
LOC: ER 17:14 → ICU 19:19
PROVIDERS: ADMIT Internal Medicine; ATTEND Internal Medicine
DX: F10.239 Alcohol dependence with withdrawal, unspecified (principal); E87.2 Acidosis; D72.829 Elevated white blood cell count, unspecified; E86.0 Dehydration; E87.6 Hypokalemia; F17.210 Nicotine dependence, cigarettes, uncomplicated; F32.A Depression, unspecified; F41.9 Anxiety disorder, unspecified; G89.29 Other chronic pain; I10 Essential (primary) hypertension; Z82.49 Family history of ischemic heart disease and other diseases of the circulatory system; Z82.5 Family history of asthma and other chronic lower respiratory diseases; Z86.73 Personal history of transient ischemic attack (TIA), and cerebral infarction without residual deficits; M54.50 Low back pain, unspecified; Z90.49 Acquired absence of other specified parts of digestive tract; Z20.822 Contact with and (suspected) exposure to COVID-19
CPT/HCPCS: 36415; 71045; 80053; 81001; 82010; 82140; 82553; 82803; 83605; 83690; 85007; 85025; 85027; 85610; 87040; 87086; 87426; 93005; 96365; 96375; 99406; G0480; J1956; J2060; J2405; J3010; J7120; Q0162; U0003; 99285-25; J7030

== ENCOUNTER 2021-11-30 20:39 | Emergency (ER) | payer MEDICAID ==
[~2021-11-30] VITALS: Ht 180.3 cm; Wt 89.0 kg
[~2021-11-30 20:39] MED LIST changes: +ALPR1TAB6 PO; +AMLO-187 PO; +AMLO5TAB4 PO; +BACL10TA PO; +BUPR300T92 PO; +BUSP10TA PO; +CELE200C PO; +FURO20TA3 PO; +LORA-254 PO; +TADA5TAB PO; +TIZA-75 PO; +pravastatin
--- NOTE | 2021-11-30 21:07 | PHYS DOC ---
Past History Past Medical History: Alcoholism, Anxiety, CVA, Depression, Hypertension Additional Past Medical Histor: chronic back pain Past Surgical History: Cholecystectomy Smoking: Cigarettes Alcohol Use: Heavy Drug Use: None Adult General Chief Complaint Chief Complaint: ALTERED MENTAL STATUS HPI HPI Patient is a 61-year-old male with chronic pain issues who presents to the emergency department at the request of his daughter for being too sleepy. Patient states that he just took too many of his hydrocodone today and was really sleepy and should he came to the emergency department. Denies any recent travels, traumas, headache, changes in vision, numbness/weakness/tingling. Denies any trouble sitting, standing or walking. States he does not want any work-up or evaluation done and wants to go on home. Review of Systems Review of Systems Review of systems otherwise unremarkable except noted in HPI Allergies Allergies Allergies Coded Allergies Type Severity Reaction Last Updated Verified No Known Drug Allergies 12/25/20 No Physical Exam Physical Exam Constitutional: Well developed, well nourished, no acute distress, non-toxic appearance. [] HENT: Normocephalic, atraumatic, bilateral external ears normal, oropharynx moist, no oral exudates, nose normal. [] Eyes: PERRLA, EOMI, conjunctiva normal, no discharge. [] Neck: Normal range of motion, no tenderness, supple, no stridor. [] Cardiovascular:Heart rate regular rhythm, no murmur [] Lungs & Thorax: Bilateral breath sounds clear to auscultation [] Abdomen: Bowel sounds normal, soft, no tenderness, no masses, no pulsatile masses. [] Skin: Warm, dry, no erythema, no rash. [] Back: No tenderness, no CVA tenderness. [] Extremities: No tenderness, no cyanosis, no clubbing, ROM intact, no edema. [] Neurologic: Alert and oriented X 3, normal motor function, normal sensory function, able to sit, stand and walk without issue, can take p.o. without issue, no focal deficits noted. [] Psychologic: Affect normal, judgement normal, mood normal. [] EKG EKG [] Radiology/Procedures Radiology/Procedures [] Heart Score C/O Chest Pain: No Risk Factors: Risk Factors: DM, Current or recent (<one month) smoker, HTN, HLP, family history of CAD, obesity. Risk Scores: Risk Factors: DM, Current or recent (<one month) smoker, HTN, HLP, family history of CAD, obesity. Course & Med Decision Making Course & Med Decision Making Patient is a 61-year-old male who presents to the emergency department Vital signs initially notable for sinus tachycardia. Physical exam noted above. Given dose of Narcan to which patient responded to right away. After which patient remained awake alert and oriented in no acute distress. Took p.o. Without issue. Patient stated that his daughter should have called the ambulance, he was just at home sleepy because he took too many hydrocodone and does not want any work-up at all done. States he just wants to be discharged. Discussed with patient the risks of taking too many of these medications including disability falls and . Patient verbalized understanding, and says he usually does not take that many. Discussed it would probably better to stay and get some work-up to make sure nothing else was going on. Patient stated he was fine, and wanted to be discharged home. Dragon Disclaimer Dragon Disclaimer This electronic medical record was generated, in whole or in part, using a voice recognition dictation system. Departure Departure: Impression: Primary Impression: Opioid overdose Disposition: LEFT AGAINST MEDICAL ADVICE Condition: STABLE Referrals: MERON ABDI MD (PCP) Patient Instructions: Opiate Dependence, Overdose, Accidental Additional Instructions: Thank you for coming into the emergency department tonight and allowing us to take care of you. Please read the attached information carefully to go over things we discussed. Please take your medicines as prescribed and only as needed to avoid serious risk to your health as we discussed including disability and . Please do not mix any of these medications with alcohol as this could increase the risks further. You are offered admission to the hospital but stated he did not want any work-up and wanted to be discharged home. I advised against this but she signed out AGAINST MEDICAL ADVICE. Please follow-up with your primary care physician in the morning to update on your ED visit and set up a follow-up as soon as possible. Please come back to the emergency department with new or concerning symptoms as discussed. JENNIFER BAKER MD November 30, 2021 21:07
[2021-11-30 22:00] VITALS: BP 114/72
[2021-11-30] MEDS: NALOXONE 0.4 MG/ML VIAL. IV ONE ×2 (22:30→23:00)
[2021-11-30 22:48] LABS: CALCIUM 9.1 mg/dL (8.5-10.1); CREATININE 1.7 mg/dL (0.7-1.3); GFR 41.3; POTASSIUM 5.5 mmol/L (3.5-5.1)
[2021-11-30 22:53] LABS: ACETAMIN < 2.0 mcg/mL (10-30); SALIC 6.1 mg/dL (2.8-20.0)
[2021-11-30 22:54] LABS: ALBUMIN 3.7 g/dL (3.4-5.0); ALBUMIN/GLOBULIN RATIO 1.1 (1.0-1.7); TOTAL BILIRUBIN 0.5 mg/dL (0.2-1.0)
[2021-11-30 22:58] LABS: BASO % 0 % (0-3); EOS % 0 % (0-3); HEMATOCRIT 39.8 % (39.0-53.0); HEMOGLOBIN 13.5 g/dL (13.0-17.5); LYMPH # 0.6 x10^3/uL (1.0-4.8); LYMPH % 8 % (24-48); MEAN CORPUSCULAR HEMOGLOBIN 33 pg (25-35); MEAN CORPUSCULAR HGB CONC 34 g/dL (31-37); MEAN CORPUSCULAR VOLUME 98 fL (79-100); MONO # 0.4 x10^3/uL (0.0-1.1); MONO % 5 % (0-9); NEUT # 6.1 x10^3uL (1.8-7.7); NEUT % 86 % (31-73); PLATELET COUNT 251 x10^3/uL (140-400); RED BLOOD COUNT 4.07 x10^6/uL (4.30-5.70); RED CELL DISTRIBUTION WIDTH 15.4 % (11.5-14.5); WHITE BLOOD COUNT 7.1 x10^3/uL (4.0-11.0)
== END 2021-11-30 23:00 | disposition left against medical advice (07) ==
LOC: ER 20:39
DX: T40.2X1A Poisoning by other opioids, accidental (unintentional), initial encounter (principal); G89.29 Other chronic pain; F10.20 Alcohol dependence, uncomplicated; I10 Essential (primary) hypertension; F41.9 Anxiety disorder, unspecified; F32.9 Major depressive disorder, single episode, unspecified; F17.210 Nicotine dependence, cigarettes, uncomplicated; Z86.73 Personal history of transient ischemic attack (TIA), and cerebral infarction without residual deficits; Y90.9 Presence of alcohol in blood, level not specified; Y92.89 Other specified places as the place of occurrence of the external cause
CPT/HCPCS: 36415; 80053; 80329; 83605; 84484; 85025; 96374; 99284; J2310; G0480